=== PATIENT | female | born 2000 | race Caucasian/White ===

== ENCOUNTER 2020-11-21 12:42 | Inpatient (IN) ==
--- NOTE | 2020-11-21 13:29 | Emergency Department Note ---
History of Present Illness General Chief complaint: Mental Health Evaluation Stated complaint: MHID Time Seen by Provider: 11/21/20 13:04 Source: patient History of Present Illness Provider complaint: Suicidal ideation Onset (ago): month(s) Location: head Pain Consistency: + intermittent Quality: + other (Wants to kill herself) Relieved By: + none Exacerbated By: + other (Stress with boyfriend) Associated symptoms: + fever/chills (Tactile fever); no chest pain, no cough, no headaches, no nausea/vomiting and no shortness of breath This is a 20-year-old female recently diagnosed with schizoaffective disorder in May presenting with suicidal ideation and self-harm today. She is brought in under a 302 warrant by police. The patient's boyfriend states that over the past month she has been suicidal and sending suicidal text to him. She has auditory hallucinations. Today she tried to cut her wrists with a pen and then locked herself in the bathroom. She states she was trying to kill her self but she does not feel suicidal anymore. She states that she has been feeling suicidal for about a month. She was in the [facility] in May and they told her she likely has schizoaffective disorder. They did wish to place her on medications but she never followed through and is not taking any meds. She denies any physical symptoms other than a tactile fever. She has had no cough or cold symptoms. She does state that she used meth and marijuana yesterday. She states that she felt suicidal today because she is fighting with her boyfriend. She does state her tetanus is up-to-date. Home Medications Medication Instructions Recorded Confirmed Type No Known Home Medications 11/21/20 11/21/20 History Allergies Allergy/AdvReac Type Severity Reaction Status Date / Time No Known Allergies Allergy Verified 11/21/20 13:14 Past Med/Surg History Medical History Mental health disorder Social History Smoking Status: Current every day smoker Tobacco Type: Cigarettes Preferred Language: Albanian Communication Ability: Effective Commercial Real Estate Attorney Required: No Beliefs That Will Affect Care: None Feels Safe at Home: Yes Assistive Devices: None Review of Systems See HPI for pertinent positives & negatives. and A total of 10 systems reviewed and were otherwise negative Physical Exam Vital Signs Vital Signs - 24 hr 11/21/20 12:45 11/21/20 16:27 Temperature 37.5 C Temperature Source Oral Pulse Rate 72 Pulse Rate [Left] 109 H Pulse Rhythm Regular Respiratory Rate 20 18 Respiratory Effort / Characteristics Non-Labored Respiratory Depth Normal Respiratory Pattern Regular Blood Pressure 116/70 Blood Pressure [Left Arm] 130/86 Blood Pressure Mean 85 Blood Pressure Mean [Left Arm] 100 Blood Pressure Position [Left Arm] Lying Pulse Oximetry 98 96 Oxygen Delivery Method Room Air Room Air Sepsis Recent Fever Within 48 Hours No Sepsis New/Unexplained Change in Mental Status No Sepsis Action Taken by Nursing No Action Required Constitutional: Vital signs reviewed. Eyes: Pupils are equal round reactive to light. Conjunctiva are noninjected. ENT: Pharynx is clear without erythema or exudate. Mucous membranes are moist. Neck supple without meningeal signs. Respiratory: Clear to auscultation bilaterally. Breath sounds are equal bilaterally. Cardiovascular: Regular rate and rhythm. No rubs or gallops. GI: Soft, nondistended and nontender. Bowel sounds are present. Musculoskeletal: No peripheral edema. Superficial abrasions to both forearms over the volar aspect. No bleeding or infection is noted. Integumentary: No cyanosis. or jaundice. Neurological: The patient is awake and alert. No focal deficits. Psychiatric: Depressed affect. Hypophonic. Medical Decision Making Differential Diagnosis Schizophrenia, schizoaffective disorder, suicidal ideation, drug abuse, mood disorder Medical Records Attestation: I reviewed the patient's medical records. I did perform a limited focused review of portions of the patient's old chart on the electronic medical record. The patient was seen here in May for mental health reasons and admitted to the [facility]. Home Medications Current Medication List: was personally reviewed by me Laboratory Data Attestation: I reviewed the patient's lab results. Result diagrams: 11/21/20 13:43 11/21/20 13:43 Lab Results 11/21/20 11/21/20 11/21/20 Range/Units 12:55 12:55 12:55 WBC (4.8-10.8) K/uL RBC (4.2-5.4) M/uL Hgb (12.0-16.0) g/dL Hct (37-47) % MCV (80-100) fL MCH (25-34) pg MCHC (32-36) g/dL RDW Std Deviation (36.4-46.3) fL RDW Coeff of Corinne (11.5-14.5) % Plt Count (130-400) K/uL MPV (7.4-10.4) fL Immature Gran % (Auto) % Neut % (Auto) % Lymph % (Auto) % Curry % (Auto) % Eos % (Auto) % Baso % (Auto) % Neut # (Auto) (1.4-6.5) K/uL Lymph # (Auto) (1.2-3.4) K/uL Curry # (Auto) (0.11-0.59) K/uL Eos # (Auto) (0-0.5) K/uL Baso # (Auto) (0-0.2) K/uL Immature Gran # (Auto) (0.00-0.02) K/uL Sodium (136-145) mmol/L Potassium (3.5-5.1) mmol/L Chloride (98-107) mmol/L Carbon Dioxide (21-32) mmol/L Anion Gap (3-11) BUN (7-18) mg/dl Creatinine (0.6-1.2) mg/dl Est Cr Clr Drug Dosing ml/min Est GFR ( Amer) ml/min Est GFR (Non-Af Amer) ml/min BUN/Creatinine Ratio (10-20) Glucose (70-99) mg/dl Calcium (8.5-10.1) mg/dl Total Bilirubin (0.2-1) mg/dl AST (15-37) U/L ALT (12-78) U/L Alkaline Phosphatase (45-117) U/L Total Protein (6.4-8.2) gm/dl Albumin (3.4-5.0) gm/dl Globulin (2.5-4.0) gm/dl Albumin/Globulin Ratio (0.9-2) TSH (0.300-4.500) uIu/ml Urine Color Yellow Urine Appearance Turbid A (Clear) Urine pH 6.0 (4.5-7.5) Ur Specific [place] 1.020 (1.000-1.030) Urine Protein Trace H (Negative) Urine Glucose (UA) Negative (Negative) Urine Ketones Trace H (Negative) Urine Blood Negative (Negative) Urine Nitrite Negative (Negative) Urine Bilirubin Negative (Negative) Urine Urobilinogen Negative (Negative) Ur Leukocyte Esterase 1+ H (Negative) Urine WBC (Auto) >30 H (0-5) /hpf Urine RBC (Auto) 0-4 (0-4) /hpf U Hyaline Cast (Auto) 1-5 (0-5) /lpf U Epithel Cells (Auto) >30 H (0-5) /lpf Urine Bacteria (Auto) 3+ H (Negative) Urine Mucus Present A (None Prsent) Urine Yeast Not Reportable Urine Test Negative (Negative) Salicylates (2.8-20) mg/dl Urine Opiates Screen Neg (Neg) Ur Methadone, Qual Neg (Neg) Acetaminophen (10-30) ug/ml Urine Barbiturates Neg (Neg) Ur Phencyclidine (PCP) Neg (Neg) U Amphetamin/Meth Scrn Pos H (Neg) MDMA (Ecstasy) Screen Pos H (Neg) U Benzodiazepines Scrn Neg (Neg) Ur Cocaine Metabolite Neg (Neg) U Marijuana (THC) Screen Pos H (Neg) Ethyl Alcohol mg/dL (0-3) mg/dl COVID-19 Eval Order SARS-CoV-2, RNA, NAAT (NEGATIVE) 11/21/20 11/21/20 11/21/20 Range/Units 13:43 13:43 13:43 WBC 7.75 (4.8-10.8) K/uL RBC 4.89 (4.2-5.4) M/uL Hgb 14.4 (12.0-16.0) g/dL Hct 42.5 (37-47) % MCV 86.9 (80-100) fL MCH 29.4 (25-34) pg MCHC 33.9 (32-36) g/dL RDW Std Deviation 44.3 (36.4-46.3) fL RDW Coeff of Corinne 14.0 (11.5-14.5) % Plt Count 277 (130-400) K/uL MPV 10.6 H (7.4-10.4) fL Immature Gran % (Auto) 0.3 % Neut % (Auto) 69.7 % Lymph % (Auto) 20.5 % Curry % (Auto) 7.6 % Eos % (Auto) 1.5 % Baso % (Auto) 0.4 % Neut # (Auto) 5.40 (1.4-6.5) K/uL Lymph # (Auto) 1.59 (1.2-3.4) K/uL Curry # (Auto) 0.59 (0.11-0.59) K/uL Eos # (Auto) 0.12 (0-0.5) K/uL Baso # (Auto) 0.03 (0-0.2) K/uL Immature Gran # (Auto) 0.02 (0.00-0.02) K/uL Sodium 139 (136-145) mmol/L Potassium 3.7 (3.5-5.1) mmol/L Chloride 108 H (98-107) mmol/L Carbon Dioxide 25 (21-32) mmol/L Anion Gap 6.0 (3-11) BUN 14 (7-18) mg/dl Creatinine 0.87 (0.6-1.2) mg/dl Est Cr Clr Drug Dosing 75.3 ml/min Est GFR ( Amer) 109.6 ml/min Est GFR (Non-Af Amer) 94.6 ml/min BUN/Creatinine Ratio 15.6 (10-20) Glucose 104 H (70-99) mg/dl Calcium 9.3 (8.5-10.1) mg/dl Total Bilirubin 0.6 (0.2-1) mg/dl AST 9 L (15-37) U/L ALT 15 (12-78) U/L Alkaline Phosphatase 82 (45-117) U/L Total Protein 7.4 (6.4-8.2) gm/dl Albumin 3.9 (3.4-5.0) gm/dl Globulin 3.5 (2.5-4.0) gm/dl Albumin/Globulin Ratio 1.1 (0.9-2) TSH 1.030 (0.300-4.500) uIu/ml Urine Color Urine Appearance (Clear) Urine pH (4.5-7.5) Ur Specific [place] (1.000-1.030) Urine Protein (Negative) Urine Glucose (UA) (Negative) Urine Ketones (Negative) Urine Blood (Negative) Urine Nitrite (Negative) Urine Bilirubin (Negative) Urine Urobilinogen (Negative) Ur Leukocyte Esterase (Negative) Urine WBC (Auto) (0-5) /hpf Urine RBC (Auto) (0-4) /hpf U Hyaline Cast (Auto) (0-5) /lpf U Epithel Cells (Auto) (0-5) /lpf Urine Bacteria (Auto) (Negative) Urine Mucus (None Prsent) Urine Yeast Urine Test (Negative) Salicylates < 1.7 L (2.8-20) mg/dl Urine Opiates Screen (Neg) Ur Methadone, Qual (Neg) Acetaminophen < 2 L (10-30) ug/ml Urine Barbiturates (Neg) Ur Phencyclidine (PCP) (Neg) U Amphetamin/Meth Scrn (Neg) MDMA (Ecstasy) Screen (Neg) U Benzodiazepines Scrn (Neg) Ur Cocaine Metabolite (Neg) U Marijuana (THC) Screen (Neg) Ethyl Alcohol mg/dL (0-3) mg/dl COVID-19 Eval Order SARS-CoV-2, RNA, NAAT (NEGATIVE) 11/21/20 11/21/20 11/21/20 Range/Units 13:43 14:53 14:53 WBC (4.8-10.8) K/uL RBC (4.2-5.4) M/uL Hgb (12.0-16.0) g/dL Hct (37-47) % MCV (80-100) fL MCH (25-34) pg MCHC (32-36) g/dL RDW Std Deviation (36.4-46.3) fL RDW Coeff of Corinne (11.5-14.5) % Plt Count (130-400) K/uL MPV (7.4-10.4) fL Immature Gran % (Auto) % Neut % (Auto) % Lymph % (Auto) % Curry % (Auto) % Eos % (Auto) % Baso % (Auto) % Neut # (Auto) (1.4-6.5) K/uL Lymph # (Auto) (1.2-3.4) K/uL Curry # (Auto) (0.11-0.59) K/uL Eos # (Auto) (0-0.5) K/uL Baso # (Auto) (0-0.2) K/uL Immature Gran # (Auto) (0.00-0.02) K/uL Sodium (136-145) mmol/L Potassium (3.5-5.1) mmol/L Chloride (98-107) mmol/L Carbon Dioxide (21-32) mmol/L Anion Gap (3-11) BUN (7-18) mg/dl Creatinine (0.6-1.2) mg/dl Est Cr Clr Drug Dosing ml/min Est GFR ( Amer) ml/min Est GFR (Non-Af Amer) ml/min BUN/Creatinine Ratio (10-20) Glucose (70-99) mg/dl Calcium (8.5-10.1) mg/dl Total Bilirubin (0.2-1) mg/dl AST (15-37) U/L ALT (12-78) U/L Alkaline Phosphatase (45-117) U/L Total Protein (6.4-8.2) gm/dl Albumin (3.4-5.0) gm/dl Globulin (2.5-4.0) gm/dl Albumin/Globulin Ratio (0.9-2) TSH (0.300-4.500) uIu/ml Urine Color Urine Appearance (Clear) Urine pH (4.5-7.5) Ur Specific [place]wood (1.000-1.030) Urine Protein (Negative) Urine Glucose (UA) (Negative) Urine Ketones (Negative) Urine Blood (Negative) Urine Nitrite (Negative) Urine Bilirubin (Negative) Urine Urobilinogen (Negative) Ur Leukocyte Esterase (Negative) Urine WBC (Auto) (0-5) /hpf Urine RBC (Auto) (0-4) /hpf U Hyaline Cast (Auto) (0-5) /lpf U Epithel Cells (Auto) (0-5) /lpf Urine Bacteria (Auto) (Negative) Urine Mucus (None Prsent) Urine Yeast Urine Test (Negative) Salicylates (2.8-20) mg/dl Urine Opiates Screen (Neg) Ur Methadone, Qual (Neg) Acetaminophen (10-30) ug/ml Urine Barbiturates (Neg) Ur Phencyclidine (PCP) (Neg) U Amphetamin/Meth Scrn (Neg) MDMA (Ecstasy) Screen (Neg) U Benzodiazepines Scrn (Neg) Ur Cocaine Metabolite (Neg) U Marijuana (THC) Screen (Neg) Ethyl Alcohol mg/dL < 3.0 (0-3) mg/dl COVID-19 Eval Order Covid19 [facility] SARS-CoV-2, RNA, NAAT NEGATIVE (NEGATIVE) MDM Narrative I did evaluate the patient as noted above. The patient is presenting under a 302 warrant for suicidal ideation and self-harm. She states that she has been feeling suicidal for the past month. She does not take any medications and believes she has schizoaffective disorder. She does admit to polysubstance abus e. She is willing to sign herself in voluntarily for psychiatric care. I did order a urine analysis. Her urinalysis appears to be contaminated. Culture was sent. Urine test was negative. Urine tox screen is positive for meth and MDMA and marijuana. I did order and review the patient's blood work as noted in the electronic medical record. Her white count is not elevated. Electrolytes are unremarkable. I did medically clear the patient. She was evaluated by 3 S. who admitted the patient to the mental health unit. Impression & Plan Mood disorder, Suicidal ideation, Intentional self-harm, Polysubstance abuse Discharge Plan Visit Data Chief Complaint: Mental Health Evaluation Stated Complaint: MHID ED Provider: Jorden Momin Discharge Problem: Mood disorder, Suicidal ideation, Intentional self-harm, Polysubstance abuse Patient Disposition: Admitted As Inpatient Discharge Instructions Interventions: ED Discharge Assessment Last Done: 11/21/20 17:52
[2020-11-21 13:55] LABS: Appearance Urine Turbid (Clear); Bacteria Urine Automated 3+ (Negative); Bilirubin Urine Negative (Negative); Blood Urine Negative (Negative); Color Urine Yellow; Epithelial Cell Urine Auto >30 /lpf (0-5); Glucose Urine UA Negative (Negative); Ketones Urine Trace (Negative); Leukocyte Esterase Urine 1+ (Negative); Nitrite Urine Negative (Negative); Protein Urine Trace (Negative); Urobilinogen Urine Negative (Negative); WBC Urine Automated >30 /hpf (0-5)
[2020-11-21 13:58] LABS: Basophils # (auto) 0.03 K/uL (0-0.2); Basophils % (auto) 0.4 %; Eosinophils # (auto) 0.12 K/uL (0-0.5); Eosinophils % (auto) 1.5 %; Hematocrit (blood only) 42.5 % (37-47); Hemoglobin 14.4 g/dL (12.0-16.0); Immature Granulocytes # (auto) 0.02 K/uL (0.00-0.02); Immature Granulocytes % (auto) 0.3 %; Lymphocytes # (auto) 1.59 K/uL (1.2-3.4); Lymphocytes % (auto) 20.5 %; Mean Corpuscular Hemoglobin 29.4 pg (25-34); Mean Corpuscular Hgb Conc 33.9 g/dL (32-36); Mean Corpuscular Volume 86.9 fL (80-100); Mean Platelet Volume 10.6 fL (7.4-10.4); Monocytes # (auto) 0.59 K/uL (0.11-0.59); Monocytes % (auto) 7.6 %; Neutrophils % (auto) 69.7 %; Platelet Count 277 K/uL (130-400); RDW Standard Deviation 44.3 fL (36.4-46.3); Red Blood Count 4.89 M/uL (4.2-5.4); White Blood Count 7.75 K/uL (4.8-10.8)
[2020-11-21 14:04] LABS: Pregnancy Test, Urine Negative (Negative)
[2020-11-21 14:10] LABS: Mucus Urine Present (None Prsent)
[2020-11-21 14:14] LABS: RBC Urine Automated 0-4 /hpf (0-4)
[2020-11-21 14:15] LABS: Albumin Level 3.9 gm/dl (3.4-5.0); BUN Creatinine Ratio 15.6 (10-20); Calcium 9.3 mg/dl (8.5-10.1); Creatinine Clr Calc Pharmacy 75.3 ml/min; Est GFR (African American) 109.6 ml/min; Est GFR (Non-African American) 94.6 ml/min; Potassium 3.7 mmol/L (3.5-5.1)
[2020-11-21 14:17] LABS: Acetaminophen < 2 ug/ml (10-30)
[2020-11-21 14:18] LABS: Salicylate < 1.7 mg/dl (2.8-20)
[2020-11-21 14:24] LABS: Albumin Globulin Ratio 1.1 (0.9-2); Bilirubin,Total 0.6 mg/dl (0.2-1); Globulin 3.5 gm/dl (2.5-4.0); Thyroid Stimulating Hormone 1.03 uIu/ml (0.300-4.500); Total Protein 7.4 gm/dl (6.4-8.2)
[2020-11-21 14:32] LABS: Amphetamines+Metham, Urine Pos (Neg); Barbiturates, Urine Neg (Neg); Benzodiazepine, Urine Neg (Neg); Cocaine, Urine Neg (Neg); MDMA (Ecstacy), Urine Pos (Neg); Methadone, Urine Neg (Neg); Opiate, Urine Neg (Neg); Phencyclidine, Urine Neg (Neg)
[2020-11-21] MEDS ORDERED: BISMUTH SUBSALICYLATE LIQD 236 ML PO PRN (17:15)
[2020-11-21] MEDS ORDERED: SODIUM CHLORIDE 0.65% NA SOLN 45 ML (OCEAN) PRN (17:15)
[2020-11-21] MEDS ORDERED: ALUMINUM/MAGNESIUM SUSP 30 ML UDC PO PRN (17:15)
[2020-11-21] MEDS ORDERED: ACETAMINOPHEN 325 MG TAB PO PRN (17:15)
[2020-11-21] MEDS ORDERED: MAGNESIUM HYDROXIDE SUSP 30 ML UDC PO PRN (17:15)
[2020-11-21] MEDS ORDERED: hydrOXYzine HCl 25 MG TAB PO PRN ×2 (17:15)
[2020-11-21] MEDS ORDERED: diazePAM 5 MG TABLET PO ONE (18:23)
[2020-11-21] MEDS: NICOTINE POLACRILEX 2 MG GUM MT PRN (19:15)
[2020-11-21] MEDS ORDERED: diazePAM 5 MG TABLET ONE (22:19)
[2020-11-22] MEDS ORDERED: NICOTINE 21 MG/24 HR TDSY TD SCH (09:00)
[2020-11-22] MEDS ORDERED: LORazepam 1 MG TAB PO STA (10:28)
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
[2020-11-22] MEDS: NICOTINE POLACRILEX 2 MG GUM MT PRN (16:12)
[2020-11-28 10:52] LABS: Amphetamine Urine, Confirm 12300 ng/mL (<250); MDA negative; MDEA negative; MDMA (Ecstasy) Urine, Confirm negative; Marijuana Quant, GCMS Urine 245 ng/mL (<5); Methamphetamine, Ur Confirm >15000 ng/mL (<250)
== END 2020-11-22 18:30 | disposition left against medical advice (07) | DRG 894 ==
LOC: ED 12:42 → 3S 17:15

== ENCOUNTER 2021-09-10 22:08 | Observation (INO) ==
[2021-09-10] MEDS ORDERED: SODIUM CHLORIDE 0.9% 1000ML 1,000 ML IV SCH (22:15)
--- NOTE | 2021-09-10 22:24 | Emergency Department Note ---
Impression & Plan Polysubstance abuse, Acute alteration in mental status, Agitation ED Provider Note NAME: MARQUEZ ZARATE AGE: 21 SEX: F : 2000 ARRIVES VIA: Ambulance INFORMANT: EMS, ED PROVIDER(S): Maral Thornton DO CHIEF COMPLAINT: Altered mental status HPI: The patient is a 21-year-old female scented to the emergency department by ambulance for an evaluation of altered mental status. The patient presented via ALS. The channel cementer insole machine was called after the patient walked into a house that was not hers. When she was in there she was acting very inappropriately. The patient may have had an overdose although there was no history available to the channel cementer insole machine. The police were initially called because of the patient's trespassing. When the patient was evaluated by the police they felt she may be having a mental health issue or possibly an overdose. For this reason the channel cementer insole machine was called. He called me from medic command conversation there is concerned that the patient was not able to be evaluated appropriately. They could not get vital signs. The patient was noted to have very dilated pupils. There was no history of any trauma. There is no definite history of overdose. Apparently the patient significant other was there as well and he admitted that the patient has a history of marijuana use but no other drug abuse was reported. There is no fever. There is no headache reported. According to the prehospital personnel the patient had a "anxiety attack" on Wednesday and has not been acting herself ever since. There was no reported suicidal homicidal ideation. They could not evaluate the patient appropriately so they initially tried Ativan. After multiple doses of benzodiazepines the patient was still very altered and not acting herself. She was not necessarily combative but just refusing to be evaluated. The patient then started to act more inappropriately and the channel cementer insole machine felt the patient may be exhibiting signs of excited delirium. After he talk to me again on a medic command call the decision was made to bring the patient in to the emergency department with the assistance of ketamine. The patient was given a dose of ketamine 120 mg prior to arrival. The patient was received directly to room B1. ROS: See above HPI for pertinent positives & negatives. A total of 10 systems reviewed and were otherwise negative. PAST MEDICAL HISTORY: See Below PAST SURGICAL HISTORY: See Below FAMILY HISTORY: See Below SOCIAL HISTORY: See Below HOME MEDICATIONS: See Below ALLERGIES: See Below VITALS: See Below PHYSICAL EXAMINATION: GENERAL: The patient was obtunded. She would follow commands intermittently but very slowly. EYES: The conjunctivae are injected bilaterally. The pupils are dilated but reactive to light bilaterally. EARS, NOSE, MOUTH AND THROAT: The nose is without any evidence of any deformity. Mucous membranes are dry. NECK: The neck is nontender and supple. RESPIRATORY: Normal respiratory effort is noted there is no evidence of wheezing rhonchi or rales CARDIOVASCULAR: Regular rate and rhythm noted there no murmurs rubs or gallops normal S1 normal S2. GASTROINTESTINAL: The abdomen is soft. Abdomen is nontender. MUSCULOSKELETAL/EXTREMITIES: There is no evidence of gross deformity full range of motion is noted in the hips and shoulders. SKIN: Skin was warm and dry. There is no significant pedal edema. NEUROLOGIC: Patient is obtunded and unable to answer questions. I cannot assess orientation at this time. Patellar tendon reflexes were 3+ bilaterally. MEDICAL DECISION MAKING: The patient is a 21-year-old female who presented to the emergency department for evaluation of altered mental status. Patient became agitated. She received ketamine prior to arrival for excited delirium. The patient's CAT scan revealed no acute disease. She was reevaluated multiple times. She was found to have a low blood sugar on her chemistry panel but this was repeated. She was treated with IV fluids. Given the patient's presentation I will discuss her case with the on-call hospitalist. Triage Nursing notes reviewed. Prior medical records reviewed Vital Signs: reviewed and remarkable for no significant abnormalities Differential diagnosis: Infection, hypoglycemia, electrolyte abnormalities, overdose, toxicologic, cardiac sources, intracerebral event, neurologic, trauma, as well as other pathologies. ER treatment provided: See below Diagnostics interpreted by me: ECG: EKG was obtained in the emergency department. My interpretation is sinus tachycardia at 112 bpm. There is no ectopy. Incomplete right bundle branch block pattern was noted. This was compared to a tracing from October 102019. No changes were noted. Cardiac Monitoring: An order was placed for continuous cardiac monitoring. The monitor shows a rate of 87 bpm with sinus rhythm. Laboratory studies: As stated above and show below. Imaging studies: See below Consultation(s): Dr. Chavez was notified about the patient. He will evaluate the patient in the emergency department. ED COURSE: Procedures: none PDMP:reviewed and no issues Critical Care: I have personally spent greater than 50 minutes of critical care time in the direct management of this patient. This includes bedside care, interpretation of diagnostic studies, and testing, discussion with consultants, patient, and family members, and other required patient management activities. This 50 minutes is in excess of all separately billable procedures. 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 Beliefs That Will Affect Care: None Feels Safe at Home: Yes Assistive Devices: None Allergies Allergies Allergy/AdvReac Type Severity Reaction Status Date / Time No Known Allergies Allergy Verified 02/06/21 21:54 Home Meds Home Medications Medication Instructions Recorded Confirmed hydroxyzine HCl 25 mg tablet 25 mg PO QID PRN 02/06/21 02/06/21 Results & Data (ED) Vital Signs Vital Signs - 24 hr 09/10/21 21:58 09/10/21 22:39 09/10/21 23:53 Pulse Rate 118 H Pulse Rate [Apical] 87 94 H Respiratory Rate 18 16 16 Respiratory Effort / Characteristics Non-Labored Respiratory Depth Normal Blood Pressure 134/90 Blood Pressure [Right Arm] 127/97 106/79 Blood Pressure Mean 104 Blood Pressure Mean [Right Arm] 107 88 Pulse Oximetry 99 100 99 Oxygen Delivery Method Room Air Room Air Room Air Sepsis Recent Fever Within 48 Hours No Sepsis New/Unexplained Change in Mental Status No Sepsis Action Taken by Nursing No Action Required 09/11/21 00:34 Pulse Rate Pulse Rate [Apical] 79 Respiratory Rate 17 Respiratory Effort / Characteristics Respiratory Depth Normal Blood Pressure Blood Pressure [Right Arm] 97/62 L Blood Pressure Mean Blood Pressure Mean [Right Arm] 73 Pulse Oximetry 98 Oxygen Delivery Method Room Air Sepsis Recent Fever Within 48 Hours Sepsis New/Unexplained Change in Mental Status Sepsis Action Taken by [facility] Medications Current Medication List: was personally reviewed by me Laboratory Data Attestation: I reviewed the patient's lab results. Result diagrams: 09/10/21 22:30 09/10/21 22:30 Lab Results 09/10/21 09/10/21 09/10/21 Range/Units 22:30 22:30 22:30 WBC 11.47 H (4.8-10.8) K/uL RBC 4.25 (4.2-5.4) M/uL Hgb 12.9 (12.0-16.0) g/dL Hct 37.8 (37-47) % MCV 88.9 (80-100) fL MCH 30.4 (25-34) pg MCHC 34.1 (32-36) g/dL RDW Std Deviation 44.3 (36.4-46.3) fL RDW Coeff of Corinne 13.6 (11.5-14.5) % Plt Count 262 (130-400) K/uL MPV 10.7 H (7.4-10.4) fL Immature Gran % (Auto) 0.2 % Neut % (Auto) 74.4 % Lymph % (Auto) 12.8 % Ada % (Auto) 11.6 % Eos % (Auto) 0.8 % Baso % (Auto) 0.2 % Neut # (Auto) 8.54 H (1.4-6.5) K/uL Lymph # (Auto) 1.47 (1.2-3.4) K/uL Ada # (Auto) 1.33 H (0.11-0.59) K/uL Eos # (Auto) 0.09 (0-0.5) K/uL Baso # (Auto) 0.02 (0-0.2) K/uL Immature Gran # (Auto) 0.02 (0.00-0.02) K/uL PT 11.9 (9.0-12.0) Seconds INR 1.1 (0.9-1.1) APTT 23.7 (21.0-31.0) Seconds PTT Ratio 0.9 VBG pH (7.36-7.41) VBG pCO2 (38-50) mmHg VBG pO2 mmHg VBG HCO3 mmol/L VBG O2 Saturation % VBG Base Excess mEq/L Barometric Pressure mm/Hg Sodium 141 (136-145) mmol/L Potassium 3.1 L (3.5-5.1) mmol/L Chloride 109 H (98-107) mmol/L Carbon Dioxide 23 (21-32) mmol/L Anion Gap 9 (3-11) BUN 16 (6-23) mg/dl Creatinine 0.78 (0.6-1.2) mg/dl Est Cr Clr Drug Dosing 88.5 ml/min Est GFR ( Amer) 124.2 ml/min Est GFR (Non-Af Amer) 107.2 ml/min BUN/Creatinine Ratio 20.5 H (10-20) Glucose 65 L (70-99(Fasting)) mg/dl POC Glucose (70-99) mg/dl Calcium 9.5 (8.5-10.1) mg/dl Magnesium 2.0 (1.7-2.4) mg/dl Total Bilirubin 0.7 (0.2-1.0) mg/dl AST 19 (13-39) U/L ALT 22 (7-52) U/L Alkaline Phosphatase 61 (34-104) U/L Total Creatine Kinase 356 H (26-192) U/L Total Protein 7.4 (6.0-8.3) gm/dl Albumin 4.8 (3.4-5.0) gm/dl Globulin 2.6 (2.5-4.0) gm/dl Albumin/Globulin Ratio 1.8 (0.9-2) Lipase 18 (11-82) U/L HCG, Qual (Negative) Urine Color Urine Appearance (Clear) Urine pH (4.5-7.5) Ur Specific [place] (1.000-1.030) Urine Protein (Negative) Urine Glucose (UA) (Negative) Urine Ketones (Negative) Urine Blood (Negative) Urine Nitrite (Negative) Urine Bilirubin (Negative) Urine Urobilinogen (Negative) Ur Leukocyte Esterase (Negative) Urine WBC (Auto) (0-5) /hpf Urine RBC (Auto) (0-4) /hpf U Hyaline Cast (Auto) (0-5) /lpf U Epithel Cells (Auto) (0-5) /lpf Urine Bacteria (Auto) (Negative) Ur Renal Epithelial Cell Urine Mucus (None Prsent) Ethyl Alcohol mg/dL (<10.0) mg/dl SARS-CoV-2, RNA, NAAT (NEGATIVE) 09/10/21 09/10/21 09/10/21 Range/Units 22:30 22:30 22:30 WBC (4.8-10.8) K/uL RBC (4.2-5.4) M/uL Hgb (12.0-16.0) g/dL Hct (37-47) % MCV (80-100) fL MCH (25-34) pg MCHC (32-36) g/dL RDW Std Deviation (36.4-46.3) fL RDW Coeff of Corinne (11.5-14.5) % Plt Count (130-400) K/uL MPV (7.4-10.4) fL Immature Gran % (Auto) % Neut % (Auto) % Lymph % (Auto) % Ada % (Auto) % Eos % (Auto) % Baso % (Auto) % Neut # (Auto) (1.4-6.5) K/uL Lymph # (Auto) (1.2-3.4) K/uL Ada # (Auto) (0.11-0.59) K/uL Eos # (Auto) (0-0.5) K/uL Baso # (Auto) (0-0.2) K/uL Immature Gran # (Auto) (0.00-0.02) K/uL PT (9.0-12.0) Seconds INR (0.9-1.1) APTT (21.0-31.0) Seconds PTT Ratio VBG pH 7.40 (7.36-7.41) VBG pCO2 40 (38-50) mmHg VBG pO2 41 mmHg VBG HCO3 24 mmol/L VBG O2 Saturation 73.2 % VBG Base Excess -0.2 mEq/L Barometric Pressure 725.3 mm/Hg Sodium (136-145) mmol/L Potassium (3.5-5.1) mmol/L Chloride (98-107) mmol/L Carbon Dioxide (21-32) mmol/L Anion Gap (3-11) BUN (6-23) mg/dl Creatinine (0.6-1.2) mg/dl Est Cr Clr Drug Dosing ml/min Est GFR ( Amer) ml/min Est GFR (Non-Af Amer) ml/min BUN/Creatinine Ratio (10-20) Glucose (70-99(Fasting)) mg/dl POC Glucose (70-99) mg/dl Calcium (8.5-10.1) mg/dl Magnesium (1.7-2.4) mg/dl Total Bilirubin (0.2-1.0) mg/dl AST (13-39) U/L ALT (7-52) U/L Alkaline Phosphatase (34-104) U/L Total Creatine Kinase (26-192) U/L Total Protein (6.0-8.3) gm/dl Albumin (3.4-5.0) gm/dl Globulin (2.5-4.0) gm/dl Albumin/Globulin Ratio (0.9-2) Lipase (11-82) U/L HCG, Qual Negative (Negative) Urine Color Urine Appearance (Clear) Urine pH (4.5-7.5) Ur Specific [place] (1.000-1.030) Urine Protein (Negative) Urine Glucose (UA) (Negative) Urine Ketones (Negative) Urine Blood (Negative) Urine Nitrite (Negative) Urine Bilirubin (Negative) Urine Urobilinogen (Negative) Ur Leukocyte Esterase (Negative) Urine WBC (Auto) (0-5) /hpf Urine RBC (Auto) (0-4) /hpf U Hyaline Cast (Auto) (0-5) /lpf U Epithel Cells (Auto) (0-5) /lpf Urine Bacteria (Auto) (Negative) Ur Renal Epithelial Cell Urine Mucus (None Prsent) Ethyl Alcohol mg/dL < 10.0 (<10.0) mg/dl SARS-CoV-2, RNA, NAAT (NEGATIVE) 09/10/21 09/10/21 09/10/21 Range/Units 22:58 22:58 23:57 WBC (4.8-10.8) K/uL RBC (4.2-5.4) M/uL Hgb (12.0-16.0) g/dL Hct (37-47) % MCV (80-100) fL MCH (25-34) pg MCHC (32-36) g/dL RDW Std Deviation (36.4-46.3) fL RDW Coeff of Corinne (11.5-14.5) % Plt Count (130-400) K/uL MPV (7.4-10.4) fL Immature Gran % (Auto) % Neut % (Auto) % Lymph % (Auto) % Ada % (Auto) % Eos % (Auto) % Baso % (Auto) % Neut # (Auto) (1.4-6.5) K/uL Lymph # (Auto) (1.2-3.4) K/uL Ada # (Auto) (0.11-0.59) K/uL Eos # (Auto) (0-0.5) K/uL Baso # (Auto) (0-0.2) K/uL Immature Gran # (Auto) (0.00-0.02) K/uL PT (9.0-12.0) Seconds INR (0.9-1.1) APTT (21.0-31.0) Seconds PTT Ratio VBG pH (7.36-7.41) VBG pCO2 (38-50) mmHg VBG pO2 mmHg VBG HCO3 mmol/L VBG O2 Saturation % VBG Base Excess mEq/L Barometric Pressure mm/Hg Sodium (136-145) mmol/L Potassium (3.5-5.1) mmol/L Chloride (98-107) mmol/L Carbon Dioxide (21-32) mmol/L Anion Gap (3-11) BUN (6-23) mg/dl Creatinine (0.6-1.2) mg/dl Est Cr Clr Drug Dosing ml/min Est GFR ( Amer) ml/min Est GFR (Non-Af Amer) ml/min BUN/Creatinine Ratio (10-20) Glucose (70-99(Fasting)) mg/dl POC Glucose 81 (70-99) mg/dl Calcium (8.5-10.1) mg/dl Magnesium (1.7-2.4) mg/dl Total Bilirubin (0.2-1.0) mg/dl AST (13-39) U/L ALT (7-52) U/L Alkaline Phosphatase (34-104) U/L Total Creatine Kinase (26-192) U/L Total Protein (6.0-8.3) gm/dl Albumin (3.4-5.0) gm/dl Globulin (2.5-4.0) gm/dl Albumin/Globulin Ratio (0.9-2) Lipase (11-82) U/L HCG, Qual (Negative) Urine Color Dark Yellow Urine Appearance Clear (Clear) Urine pH 5.0 (4.5-7.5) Ur Specific [place] 1.029 (1.000-1.030) Urine Protein 1+ H (Negative) Urine Glucose (UA) Negative (Negative) Urine Ketones Trace H (Negative) Urine Blood Negative (Negative) Urine Nitrite Negative (Negative) Urine Bilirubin Negative (Negative) Urine Urobilinogen Negative (Negative) Ur Leukocyte Esterase Negative (Negative) Urine WBC (Auto) 5-10 H (0-5) /hpf Urine RBC (Auto) 0-4 (0-4) /hpf U Hyaline Cast (Auto) 1-5 (0-5) /lpf U Epithel Cells (Auto) >30 H (0-5) /lpf Urine Bacteria (Auto) Negative (Negative) Ur Renal Epithelial Cell Not Reportable Urine Mucus Present A (None Prsent) Ethyl Alcohol mg/dL (<10.0) mg/dl SARS-CoV-2, RNA, NAAT NEGATIVE (NEGATIVE) Administered Medications Discontinued Medications Sodium Chloride (Nss 1000ml) 1,000 mls @ 999 mls/hr IV .Q1H1M CARMELA Stop: 09/10/21 23:15 Last Infusion: 09/10/21 23:54 Dose: 0 mls/hr Documented by: [id number] Admin: 09/10/21 22:40 Dose: 999 mls/hr Documented by: [id number] Imaging Data Attestation: I personally reviewed and interpreted this imaging study as follows: My Impression: 1 view chest x-ray was obtained in the emergency department. My interpretation is no free air, no infiltrate, no acute disease. Radiologist's Impression: Patient: MARQUEZ ZARATE (Female) : 89 Status: ER Date:J 09/10/21 22:56 Room #: History: OVERDOSE Slices: 114 Priors: Tech: Kalin Macedo @ [phone] Exams: CT HEAD Contrast: Accession Numbers: [id number] Referring Physician: MARAL THORNTON Preliminary Findings Only See Final Report For Complete Findings CT HEAD: Comparison: CT brain without contrast 02/06/21 Examination is limited by motion. No acute intracranial hemorrhage, extra-axial fluid collection or mass-effect. No CT evidence of acute territorial infarct. Radiologist: Allison Ventura M.D. Study ready at 23:00 and initial results transmitted at 23:14 Discharge Plan Visit Data Chief Complaint: Overdose (Accidental) Stated Complaint: Overdose ED Provider: Maral Thornton Discharge Problem: Polysubstance abuse, Acute alteration in mental status, Agitation Patient Disposition: Being Evaluated by Hospitalist Forms Stand Alone Forms: [facility] Prescriptions Prescriptions: No Action hydroxyzine HCl 25 mg tablet 25 mg PO QID PRN (Reason: Anxiety) RF: 0 Referrals Referrals: Lisa Velazquez PA-C [Outside Practitioners] -
[2021-09-10 22:40] LABS: Basophils # (auto) 0.02 K/uL (0-0.2); Basophils % (auto) 0.2 %; Eosinophils # (auto) 0.09 K/uL (0-0.5); Eosinophils % (auto) 0.8 %; Hematocrit (blood only) 37.8 % (37-47); Hemoglobin 12.9 g/dL (12.0-16.0); Immature Granulocytes # (auto) 0.02 K/uL (0.00-0.02); Immature Granulocytes % (auto) 0.2 %; Lymphocytes # (auto) 1.47 K/uL (1.2-3.4); Lymphocytes % (auto) 12.8 %; Mean Corpuscular Hemoglobin 30.4 pg (25-34); Mean Corpuscular Hgb Conc 34.1 g/dL (32-36); Mean Corpuscular Volume 88.9 fL (80-100); Mean Platelet Volume 10.7 fL (7.4-10.4); Monocytes # (auto) 1.33 K/uL (0.11-0.59); Monocytes % (auto) 11.6 %; Neutrophils # (auto) 8.54 K/uL (1.4-6.5); Neutrophils % (auto) 74.4 %; Platelet Count 262 K/uL (130-400); RDW Coefficient of Variation 13.6 % (11.5-14.5); RDW Standard Deviation 44.3 fL (36.4-46.3); Red Blood Count 4.25 M/uL (4.2-5.4); White Blood Count 11.47 K/uL (4.8-10.8)
[2021-09-10 22:42] LABS: Base Excess VBG -0.2 mEq/L; Oxygen Saturation VBG 73.2 %; pH VBG 7.4 (7.36-7.41)
[2021-09-10 22:50] LABS: INR 1.1 (0.9-1.1); Partial Thromboplastin Ratio 0.9; Partial Thromboplastin Time 23.7 Seconds (21.0-31.0); Prothrombin Time 11.9 Seconds (9.0-12.0)
[2021-09-10 23:03] LABS: Albumin Globulin Ratio 1.8 (0.9-2); Albumin Level 4.8 gm/dl (3.4-5.0); BUN Creatinine Ratio 20.5 (10-20); Bilirubin,Total 0.7 mg/dl (0.2-1.0); Calcium 9.5 mg/dl (8.5-10.1); Creatinine Clr Calc Pharmacy 88.5 ml/min; Est GFR (African American) 124.2 ml/min; Est GFR (Non-African American) 107.2 ml/min; Globulin 2.6 gm/dl (2.5-4.0); Potassium 3.1 mmol/L (3.5-5.1); Total Protein 7.4 gm/dl (6.0-8.3)
[2021-09-10 23:19] LABS: Pregnancy Test, Serum Negative (Negative)
[2021-09-11] LABS: Appearance Urine Clear (Clear); Bacteria Urine Automated Negative (Negative); Bilirubin Urine Negative (Negative); Blood Urine Negative (Negative); Color Urine Dark Yellow; Epithelial Cell Urine Auto >30 /lpf (0-5); Glucose Urine UA Negative (Negative); Ketones Urine Trace (Negative); Leukocyte Esterase Urine Negative (Negative); Nitrite Urine Negative (Negative); Protein Urine 1+ (Negative); Specific Gravity Urine 1.029 (1.000-1.030); Urobilinogen Urine Negative (Negative)
--- NOTE | 2021-09-11 00:18 | History & Physical Report ---
Date of Service September 11, 2021 Assessment & Plan (1) Acute alteration in mental status: Plan: 21 year old female with history meth and polysubstance use disorder and multiple prior inpatient psych admissions who presents with agitation and altered mentation. - reassess symptoms and exam after less sedated - w/ hx of meth use, considered excited delirium - vitals initially tachycardic, since resolved - consult psych - patient is not admitted under 302 - no one on one sitter indicated in absence of reported SI/HI. Patient does have hx of suicidal ideation in the past - maintenance IV fluids (2) Polysubstance abuse: Plan: - hx of meth and marijuana use (3) Elevated CK: Plan: - likely 2/2 agitation (4) Hypokalemia: Plan: - repleting. follow bmp (5) Leukocytosis: Plan: - monitor for signs/symptoms of infection Plan: FEN/GI: NPO. Maintenance LR. ppx: scds code: full, unable to discuss w/ patient dispo: med tele History of Present Illness Chief Complaint: altered mental status Primary Care Provider: NO PCP 21 year old female with history meth and polysubstance use disorder and multiple prior inpatient psych admissions who presents with agitation and altered mentation. 911 and EMS were called after she had entered a neighbor's house uninvited and was reportedly inappropriate in her behavior. Patient received multiple doses of ativan and 120mg ketamine in the field. History and ROS limited as she is still somnolent from medications. No family or friend present at bedside. It is unknown if patient overdosed on medication versus taking drugs recreationally. Patient was found to have dilated pupils per EMS. Per ROS prior to patient receiving Ativan and ketamine, she had denied headache. No reported suicidal or homicidal ideation per history prior to arrival. She did not require intubation or further chemical restraint while in the ED Allergies Allergy/AdvReac Type Severity Reaction Status Date / Time No Known Allergies Allergy Verified 02/06/21 21:54 Home Medications Medication Instructions Recorded Confirmed Type Unobtainable 09/11/21 09/11/21 History Past Med/Surg History Medical History Intentional self-harm Mental health disorder Suicidal ideation Social History Smoking Status: Current every day smoker Tobacco Type: Cigarettes Hx Alcohol Use: No Preferred Language: Togolese Communication Ability: Drowsy Lapeler Required: No Beliefs That Will Affect Care: None Current Living Situation: Homeless Current Living Situation Comment: Pt. states friend, Elly, will let pt. stay with her. Feels Safe at Home: Yes Assistive Devices: None Review of Systems Review of Systems: Unobtainable due to cognitive status Physical Exam Physical Exam: Limited exam limited by patient's somnolence. General: No acute distress Patient is sleeping. She withdraws to pain, but does not awake to answer questions. HEENT: Atraumatic, normocephalic. Pupils equal in size. Pulm: CTAB. Patient is snoring, mild transmitted upper airway sounds. -wheezes, -rales. No respiratory distress. Cardiac: RRR, -mrg. No lower extremity edema. Psych: Unable to assess. Integ: + acne on face. Mild flushed red appearance of feet. Per nursing staff, mild abrasion at forearms. Results & Data Results & Data ([facility]) Vital Signs (Past 12 Hours) Vital Signs Pulse Pulse Resp BP BP Pulse Ox 09/10/21 23:53 94 H 16 106/79 99 09/10/21 22:39 87 16 127/97 100 09/10/21 21:58 118 H 18 134/90 99 Laboratory Results slight leukocytosis. K 3.1. cpk 356. hcg neg. utox pos for amphetamine/meth, mdma, and thc screens. etoh neg 09/10/21 22:30 09/10/21 22:30 Cardiac Enzymes 09/10/21 Range/Units 22:30 AST 19 (13-39) U/L Coagulation 09/10/21 Range/Units 22:30 PT 11.9 (9.0-12.0) Seconds APTT 23.7 (21.0-31.0) Seconds CBC 09/10/21 Range/Units 22:30 WBC 11.47 H (4.8-10.8) K/uL RBC 4.25 (4.2-5.4) M/uL Hgb 12.9 (12.0-16.0) g/dL Hct 37.8 (37-47) % Plt Count 262 (130-400) K/uL Neut # (Auto) 8.54 H (1.4-6.5) K/uL Lymph # (Auto) 1.47 (1.2-3.4) K/uL Wirt # (Auto) 1.33 H (0.11-0.59) K/uL Eos # (Auto) 0.09 (0-0.5) K/uL Baso # (Auto) 0.02 (0-0.2) K/uL Comprehensive Metabolic Panel 09/10/21 Range/Units 22:30 Sodium 141 (136-145) mmol/L Potassium 3.1 L (3.5-5.1) mmol/L Chloride 109 H (98-107) mmol/L Carbon Dioxide 23 (21-32) mmol/L BUN 16 (6-23) mg/dl Creatinine 0.78 (0.6-1.2) mg/dl Glucose 65 L (70-99(Fasting)) mg/dl Calcium 9.5 (8.5-10.1) mg/dl AST 19 (13-39) U/L ALT 22 (7-52) U/L Alkaline Phosphatase 61 (34-104) U/L Total Protein 7.4 (6.0-8.3) gm/dl Albumin 4.8 (3.4-5.0) gm/dl Intake and Output 09/10/21 09/10/21 09/11/21 14:59 22:59 06:59 Intake Total 1000 / 1000 Balance 1000 / 1000 Intake: IV 1000 / 1000 Sodium Chloride 0.9% 1000ML 1, 1000 / 1000 000 ml @ 999 mls/hr IV .Q1H1M [facility] Rx#:[id number] Other: Weight 50 kg Weight Measurement Method Built in [facility] Patient Weight 09/11/21 06:59 Weight 50 kg Diagnostic Findings [facility] report Preliminary Findings Only - See Final Report For Complete Findings. CT HEAD: Coparison: CT brain without contrast 02/06/21 Examination is limited by motion. No acute intracranial hemorrhage, extra-axial fluid collection or mass- effect. No CT evidence of acute territorial infarct. Radiologist: Allison Ventura M.D. Study ready at 23:00 and initial results transmitted at 23:14 ECG Additional Comments: per my read, sinus tach 112. nonspecific st-t changes. normal axis and intervals. Code Status & VTE Plan Code Status full VTE Prophylaxis Plan VTE Prophylaxis will be ordered: Yes Supervising Physician Co-Signing Physician Notes Attending addendum: I have physically seen this patient, have supervised the medical residents activities, and agree with the H&P unless as otherwise noted. Assessment and Plan: Altered mental status/agitation/polysubstance abuse- History of meth use, likely excited delirium IV fluids Consult psychiatry Received Ativan and ketamine in the outpatient setting Maintain sedation and agitation with Haldol/Ativan as needed Hypokalemia- Replace with IV fluids then recheck laboratories in a.m. Remaining orders and notations as noted Resident Activity Tracking Resident Involvement: Resident Care Provided Care Provided: Adult Hospital Medicine
[2021-09-11 00:26] LABS: Mucus Urine Present (None Prsent); RBC Urine Automated 0-4 /hpf (0-4)
[2021-09-11 00:44] LABS: Acetaminophen < 3 ug/ml (10-30); Salicylate < 3.0 mg/dl (3.0-30)
[2021-09-11 01:02] LABS: Amphetamines+Metham, Urine Pos (Neg); Barbiturates, Urine Neg (Neg); Benzodiazepine, Urine Neg (Neg); Cocaine, Urine Neg (Neg); MDMA (Ecstacy), Urine Pos (Neg); Methadone, Urine Neg (Neg); Opiate, Urine Neg (Neg); Phencyclidine, Urine Neg (Neg)
[2021-09-11] MEDS ORDERED: LACTATED RINGER'S 1,000 ML IV SCH (03:45)
[2021-09-11] MEDS: POTASSIUM CHLORIDE / WTR 10 MEQ/100 ML PLCT IV SCH ×2 (04:33→09:44)
[2021-09-11] MEDS ORDERED: ONDANSETRON INJ 2 MG/ML 2 ML VIAL IV PRN (05:15)
--- NOTE | 2021-09-11 06:54 | CT Scan Report ---
CT head/brain wo con CLINICAL HISTORY: 21 years-old Female with ams. Acutely altered mental status TECHNIQUE: Multiple axial CT images of the head were obtained without contrast. A dose lowering tech nique was utilized adhering to the principles of ALARA. CT DOSE: 1074.96 mGy.cm COMPARISON: 02/06/2021 FINDINGS: No acute intracranial hemorrhage, midline shift, intracranial mass, hydrocephalus, territorial ischem ia or abnormal extra-axial collection. Motion degraded study. The exam was then repeated. The calvarium is intact. Postoperative changes of the right orbital floor. The paranasal sinuses, mas toid air cells, and middle ear cavities are clear. IMPRESSION: No acute intracranial abnormality. ACT 112: Negative or not required by law. The above report was generated using voice recognition software. It may contain grammatical, syntax o r spelling errors. Electronically signed by: Primo Peraza M.D. 09/11/2021 6:51 AM
--- NOTE | 2021-09-11 07:50 | XRay Report ---
XR chest 1V portable HISTORY: Altered mental status. COMPARISON: None. FINDINGS: The lungs are clear. Cardiac silhouette is normal in size. No pleural effusions. No pneumot horax. IMPRESSION: No acute process. ACT 112: Negative or not required by law. Electronically signed by: Walter Garcia M.D. 09/11/2021 7:49 AM
--- NOTE | 2021-09-11 11:36 | Hospitalist Progress Note ---
Date of Service September 11, 2021 Assessment & Plan (1) Acute alteration in mental status: Plan: patient has a history of polysubstance abuse admitted to the hospital on account of agitation When I saw her this morning, she was somnolent, but calm Awaiting evaluation by Psych (2) Agitation: Plan: patient is now calm will continue to monitor (3) Polysubstance abuse: Plan: Has been adviced to quit and undergo drug rehab outpatient (4) Elevated CK: Plan: resolving Plan: likely discharge in the next 24 hrs Admission and Anticipated Discharge Date Admission Date: September 11, 2021 Subjective seen and examined, somnolent Review of Systems Review of Systems: unable to obtain Physical Exam Physical Exam: The patient is somnolent, lying in bed and in no acute distress. HEENT--PERRL, EOMI, mucous membranes and oropharynx mildly dry Neck--supple. No JVD. No bruits. Thyroid normal, trachea midline, no adenopathy. Heart--normal S1 and S2. No murmurs, rubs or gallops. Lungs--clear bilaterally, no respiratory distress, no accessory muscle use. Abdomen--normal bowel sounds and soft. Mild epigastric and left sided abdominal pain Extremities--no cyanosis or clubbing. No edema. Dermatologic--normal skin turgor, normal color, no abnormal lymph nodes, no rash. Neurologic--cranial nerves II through XII grossly intact. Rheumatologic--normal range of motion. Psychiatric--unable to evaluate Results & Data Results & Data ([facility]) Vital Signs (Past 12 Hours) Vital Signs Temp Pulse Pulse Pulse Resp BP BP 09/11/21 08:00 88 09/11/21 06:45 96 H 09/11/21 06:44 97.5 F L 80 20 106/71 09/11/21 06:07 97.3 F L 82 16 110/74 09/11/21 05:15 110/74 09/11/21 03:00 82 16 114/78 09/11/21 00:34 79 17 97/62 L 09/10/21 23:53 94 H 16 106/79 Pulse Ox 09/11/21 08:00 09/11/21 06:45 09/11/21 06:44 100 09/11/21 06:07 100 09/11/21 05:15 100 09/11/21 03:00 100 09/11/21 00:34 98 09/10/21 23:53 99 PG Care Time/CCT Total # of Minutes Spent Total Time Spent with Patient: Total time spent is greater than 50% in coordination of care (as documented) at patient's floor/unit and/or counseling patient: Coding Level of Care Code 96519 Subseq Hosp Care Lvl 2 Diagnoses Acute alteration in mental status R41.82 Agitation R45.1 Polysubstance abuse F19.10 Elevated CK R74.8 Time Spent (min) 35
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
--- NOTE | 2021-09-11 13:48 | Discharge Summary ---
Date of Service September 11, 2021 Admission HPI Per Admitting Provider 21 year old female with history meth and polysubstance use disorder and multiple prior inpatient psych admissions who presents with agitation and altered mentation. 911 and EMS were called after she had entered a neighbor's house uninvited and was reportedly inappropriate in her behavior. Patient received multiple doses of ativan and 120mg ketamine in the field. History and ROS limited as she is still somnolent from medications. No family or friend present at bedside. It is unknown if patient overdosed on medication versus taking drugs recreationally. Patient was found to have dilated pupils per EMS. Per ROS prior to patient receiving Ativan and ketamine, she had denied headache. No reported suicidal or homicidal ideation per history prior to arrival. She did not require intubation or further chemical restraint while in the ED Principal Diagnosis polysubstance abuse, agitation Discharge Exam The patient is somnolent, lying in bed and in no acute distress. HEENT--PERRL, EOMI, mucous membranes and oropharynx mildly dry Neck--supple. No JVD. No bruits. Thyroid normal, trachea midline, no adenopathy. Heart--normal S1 and S2. No murmurs, rubs or gallops. Lungs--clear bilaterally, no respiratory distress, no accessory muscle use. Abdomen--normal bowel sounds and soft. Mild epigastric and left sided abdominal pain Extremities--no cyanosis or clubbing. No edema. Dermatologic--normal skin turgor, normal color, no abnormal lymph nodes, no rash. Neurologic--cranial nerves II through XII grossly intact. Rheumatologic--normal range of motion. Psychiatric--unable to evaluate Discharge Data Allergies Allergy/AdvReac Type Severity Reaction Status Date / Time No Known Allergies Allergy Verified 02/06/21 21:54 Consultations 09/11/21 00:09 ED Decision to Admit Stat 09/11/21 05:15 Consult Psychiatry Routine Ordered Studies 09/10/21 22:13 CT head/brain wo con Urgent Hospital Course (1) Acute alteration in mental status: patient has a history of polysubstance abuse admitted to the hospital on account of agitation When I saw her this morning, she was somnolent, but calm Awaiting evaluation by Psych patient left AMA (2) Agitation: patient is now calm will continue to monitor (3) Polysubstance abuse: Has been adviced to quit and undergo drug rehab outpatient (4) Elevated CK: resolving likely discharge in the next 24 hrs Total Time Total Time Spent Total Time Spent (In Minutes): 20 Discharge Plan Discharge Items Patient Disposition: Against Medical Advice Reason For Visit: SUBSTANCE ABUSE Activity: Resume your previous activity Non-emergency contact: Primary Care Provider Follow-up/Referrals: PCP,NO [Primary Care Provider] - Pending Studies at Discharge: No Stand-Alone Forms: [employer], Smoking Cessation Medications and DC Order Prescriptions: No Action Unobtainable RF: 0 Discharge Orders: Left Against Medical Advice (Routine); Ordered 09/11/21 Ordered By: Alana Roger Admission Data Admit Date/Time: 09/11/21 03:29 Attending Provider: Alana Roger Admit Provider: Freeman Smith Primary Care Provider: PCP,NO Other Providers: Cj Chavez ; Jackelin Walker ; Tash Moon ; Estephania Correa Coding Level of Care Code D/C DAY MANAGEMENT <30 MINS Diagnoses Acute alteration in mental status R41.82 Agitation R45.1 Polysubstance abuse F19.10 Elevated CK R74.8 Time Spent (min) 20
--- NOTE | 2021-09-11 20:44 | Billing Data ---
Date of Service September 11, 2021 Coding Level of Care Code 92404 Initial Inpt Care Lvl 2
--- NOTE | 2021-09-12 06:14 | Electrocardiogram Report ---
Test Reason : Blood Pressure : / mmHG Vent. Rate : 112 BPM Atrial Rate : 112 BPM P-R Int : 132 ms QRS Dur : 086 ms QT Int : 338 ms P-R-T Axes : 069 065 054 degrees QTc Int : 461 ms Sinus tachycardia Possible Left atrial enlargement Borderline ECG When compared with ECG of 11-OCT-2019 13:06, Non-specific change in ST segment in Inferior leads Confirmed by Harry Guo ([id number]) on 09/12/2021 6:14:23 AM Referred By: REFERRED SELF Confirmed By:Harry Guo
== END 2021-09-11 13:53 | disposition left against medical advice (07) | DRG 894 ==
LOC: ED 22:08 → INTOOBSV 09-11 03:29 → 2W 09-11 03:29 → SUATTDRO 09-11 03:29 → 2W 09-11 05:09